=== PATIENT | female | born 1985 | race Two or more races ===

== ENCOUNTER → 2018-06-27 | Outpatient (CLI) | payer OTHER ==
[2018-06-27 07:08] LABS: BASOPHIL % 0.4 % (0-2); PLATELET COUNT 258 x10^3mcL (130-400); RED CELL DISTRIBUTION WIDTH 12.6 % (11.5-14.5)
[2018-06-27 07:10] LABS: UA SPECIFIC GRAVITY >=1.030 (1.005-1.035); microscopic required? YES; urine erythrocyte TRACE (NEGATIVE)
[2018-06-27 07:24] LABS: ALKALINE PHOSPHATASE 62 U/L (46-116); ALT/SGPT 37 U/L (14-59); AST/SGOT 23 U/L (15-37); BILIRUBIN TOTAL 0.3 mg/dL (0.20-1.00); CALCIUM 9.3 mg/dL (8.5-10.1); CARBON DIOXIDE 26.2 mmol/L (21-32); CHLORIDE SERUM 102 mmol/L (98-107); CREATININE SERUM 0.8 mg/dL (0.6-1.0); GFR1 > 60 mL/min; GLUCOSE SERUM 93 mg/dL (74-106); HDL CHOLESTEROL 38 mg/dL (40-60); POTASSIUM SERUM 4.1 mmol/L (3.5-5.1); SODIUM SERUM 138 mmol/L (136-145)
[2018-06-27 07:28] LABS: CHOLESTEROL 133 mg/dL (<200); CHOLESTEROL/HDL RATIO 3.5; TRIGLYCERIDES 352 mg/dL (<150)
[2018-06-27 07:31] LABS: T3 TOTAL 1.53 ng/mL
[2018-06-27 07:36] LABS: FREE T4 1.26 ng/dL (0.76-1.46)
[2018-06-27 07:37] LABS: T4(THYROXINE) 14.4 ug/dL (4.7-13.3)
[2018-06-28 09:14] LABS: RAPID PLASMA REAGIN Non Reactive (Non Reactive)
[2018-06-28 13:06] LABS: microalbumin:creatinine ratio < 1.9 (0.0-30.0)
== END | disposition home or self-care (01) ==
LOC: LB 06:10
DX: Z00.00 Encounter for general adult medical examination without abnormal findings (principal)
CPT/HCPCS: 82306; 84402; 84403; 84439; 86787; 87491; 87591

== ENCOUNTER → 2019-05-15 | Outpatient (CLI) | payer OTHER ==
[2019-05-15 07:51] LABS: ALKALINE PHOSPHATASE 44 U/L (46-116); ALT/SGPT 34 U/L (14-59); AST/SGOT 26 U/L (15-37); BILIRUBIN TOTAL 0.3 mg/dL (0.20-1.00); CALCIUM 9.2 mg/dL (8.5-10.1); CARBON DIOXIDE 24.4 mmol/L (21-32); CHLORIDE SERUM 102 mmol/L (98-107); CREATININE SERUM 0.6 mg/dL (0.6-1.0); GFR1 > 60 mL/min; GLUCOSE SERUM 96 mg/dL (74-106); HDL CHOLESTEROL 49 mg/dL (40-60); POTASSIUM SERUM 3.8 mmol/L (3.5-5.1); SODIUM SERUM 136 mmol/L (136-145); TOTAL PROTEIN, SERUM 6.8 g/dL (6.4-8.2)
[2019-05-15 07:52] LABS: ALBUMIN 3.3 g/dL (3.4-5.0); CHOLESTEROL 117 mg/dL (<200); CHOLESTEROL/HDL RATIO 2.4; TRIGLYCERIDES 257 mg/dL (<150)
[2019-05-15 07:54] LABS: BASOPHIL % 0.3 % (0-2); PLATELET COUNT 185 x10^3mcL (130-400); RED CELL DISTRIBUTION WIDTH 13.4 % (11.5-14.5)
[2019-05-15 08:03] LABS: FREE T4 1.11 ng/dL (0.76-1.46); FREE THYROXINE INDEX 3.6 ug/dL (1.4-4.5); T4(THYROXINE) 14.9 ug/dL (4.7-13.3)
[2019-05-15 09:52] LABS: T3 TOTAL 1.96 ng/mL
[2019-05-16 13:05] LABS: THYROGLOBULIN ANTIBODY < 1.0 IU/mL (0.0-0.9)
== END | disposition home or self-care (01) ==
LOC: LB 06:51
DX: Z00.00 Encounter for general adult medical examination without abnormal findings (principal); E11.9 Type 2 diabetes mellitus without complications; Z87.42 Personal history of other diseases of the female genital tract
CPT/HCPCS: 84402; 84403; 84439; 86376; 87491; 87591

== ENCOUNTER → 2019-08-11 | Outpatient (CLI) | payer OTHER ==
[2019-08-11 08:36] LABS: BASOPHIL % 0.3 % (0-2); PLATELET COUNT 181 x10^3mcL (130-400); RED CELL DISTRIBUTION WIDTH 13.9 % (11.5-14.5)
[2019-08-11 08:55] LABS: GLUCOSE FASTING 82 mg/dL (70-110)
[2019-08-12 09:07] LABS: RAPID PLASMA REAGIN Non Reactive (Non Reactive)
== END | disposition home or self-care (01) ==
LOC: LB 07:16
DX: Z34.90 Encounter for supervision of normal pregnancy, unspecified, unspecified trimester (principal); N30.00 Acute cystitis without hematuria; Z11.3 Encounter for screening for infections with a predominantly sexual mode of transmission

== ENCOUNTER → 2020-08-23 | Outpatient (CLI) | payer OTHER ==
[2020-08-23 08:35] LABS: BASOPHIL % 0.4 % (0-2); PLATELET COUNT 192 x10^3mcL (130-400); RED CELL DISTRIBUTION WIDTH 12.6 % (11.5-14.5)
[2020-08-23 09:01] LABS: ALBUMIN 3.8 g/dL (3.4-5.0); ALKALINE PHOSPHATASE 69 U/L (46-116); ALT/SGPT 46 U/L (14-59); AST/SGOT 29 U/L (15-37); BILIRUBIN TOTAL 0.6 mg/dL (0.20-1.00); CALCIUM 9.1 mg/dL (8.5-10.1); CARBON DIOXIDE 28.1 mmol/L (21-32); CHLORIDE SERUM 101 mmol/L (98-107); CHOLESTEROL 140 mg/dL (<200); CHOLESTEROL/HDL RATIO 3.6; CREATININE SERUM 0.8 mg/dL (0.6-1.0); GFR1 > 60 mL/min; GLUCOSE SERUM 105 mg/dL (74-106); HDL CHOLESTEROL 39 mg/dL (40-60); POTASSIUM SERUM 4.1 mmol/L (3.5-5.1); SODIUM SERUM 135 mmol/L (136-145); TOTAL PROTEIN, SERUM 7.3 g/dL (6.4-8.2)
[2020-08-23 09:08] LABS: TRIGLYCERIDES 235 mg/dL (<150)
== END | disposition home or self-care (01) ==
LOC: LB 08:10
DX: Z00.00 Encounter for general adult medical examination without abnormal findings (principal)